=== PATIENT | female | born 1995 | race Caucasian/White ===

== ENCOUNTER 2017-12-27 04:05 | Emergency (ER) | payer OTHER ==
[~2017-12-27] VITALS: Ht 165.1 cm; Wt 86.2 kg
[2017-12-27] MEDS ORDERED: ZOFRAN ODT4 MG PO (05:44)
[2017-12-27] MEDS ORDERED: ACETAMINOPHEN-1 EAC1 PO (05:44)
[2017-12-27 06:09] VITALS: BP 114/74
== END 2017-12-27 06:10 | disposition home or self-care (01) ==
LOC: EDBD 04:05 → M.ERS 04:05
DX: S06.0X0A Concussion without loss of consciousness, initial encounter (principal); F41.9 Anxiety disorder, unspecified; F32.9 Major depressive disorder, single episode, unspecified; Z88.0 Allergy status to penicillin; W22.8XXA Striking against or struck by other objects, initial encounter; Y93.89 Activity, other specified; Y92.89 Other specified places as the place of occurrence of the external cause; Y99.8 Other external cause status

== ENCOUNTER 2018-11-30 02:13 | Emergency (ER) | payer BC ==
[~2018-11-30] VITALS: Ht 162.6 cm; Wt 72.6 kg
[~2018-11-30 02:13] MED LIST: ACETAMINOPHEN-1 EAC1 PO; ZOFRAN ODT4 MG PO
[2018-11-30 02:50] LABS: ABSOLUTE BASOPHILS 0.1 thou/uL (0.0-0.2); ABSOLUTE EOSINOPHILS 0.1 thou/uL (0.0-0.7); ABSOLUTE LYMPHOCYTES 3.5 thou/uL (0.8-5.3); ABSOLUTE MONOCYTES 0.8 thou/uL (0.0-1.2); ABSOLUTE NEUTROPHILS 6.3 thou/uL (1.6-8.1); BASOPHILS 0.5 %; EOSINOPHILS 1.3 %; HEMATOCRIT 39.5 % (37.0-47.0); HEMOGLOBIN 13.2 gm/dL (12.0-15.0); LYMPHOCYTES 32.1 %; MCH 31.2 pg (26.0-34.0); MCHC 33.5 g/dL (28.0-37.0); MCV 93.2 fL (80.0-100.0); MONOCYTES 7.1 %; MPV 9.4 fl. (7.2-11.1); NUCLEATED RBCS 0 /100WBC; PLATELET COUNT* 266 thou/uL (150-400); RBC 4.24 mil/uL (4.20-5.00); RDW-CV 13.1 % (10.5-14.5); WBC 10.7 thou/uL (4.0-11.0)
[2018-11-30 02:59] LABS: ALBUMIN 3.3 g/dL (3.4-5.0); CALCIUM 9.4 mg/dL (8.5-10.1); CREATININE 0.8 mg/dL (0.6-1.3); POTASSIUM 3.1 mmol/L (3.5-5.1); TOTAL BILIRUBIN 0.2 mg/dL (<0.1-1.0); TOTAL PROTEIN 7.5 g/dL (6.4-8.2)
[2018-11-30 03:10] LABS: MONOTEST (MONOSPOT)* NEGATIVE (Negative)
[2018-11-30 04:37] VITALS: BP 100/62
== END 2018-11-30 04:35 | disposition home or self-care (01) ==
LOC: M.ERS 02:13
PROVIDERS: Family Medicine
DX: R22.1 Localized swelling, mass and lump, neck (principal); M54.2 Cervicalgia; R55 Syncope and collapse